=== PATIENT | female | born 1935 | race Caucasian/White ===

== ENCOUNTER 2016-10-22 17:21 | Observation (INO) | payer OTHER ==
[~2016-10-22] VITALS: Ht 162.6 cm; Wt 65.8 kg
[~2016-10-22 17:21] MED LIST: ASPIRIN325 MG PO; Ascorbic Acid,Ester- PO; CARVEDILOL3.125 MG PO; CIPRO500 MG PO; CLONAZEPAM0.5 MG PO; COREG3.125 M1 PO; CYANOCOBALAM1000 MCG PO; Coreg PO; FOLIC ACID1 MG PO; GLUCOPHAGE XR,500 MG PO; LIPITOR80 MG PO; LOMOTIL TABLET1 EACH PO; LOTREL 10/41 CAPSULE PO; LOTREL 5-40 MG1 EACH PO; LOW DOSE ASPIRI81 M2 PO; Lipitor PO; MICARDIS80 MG PO; NASONEX; NASONEX17 GM BOTH NARES; NASONEX17 GM NS; PLAVIX75 MG PO; PRIMIDONE50 MG PO; PROTONIX40 MG PO; PULMICORT FLE180 MCG IH; PULMICORT180 MICROG IH; Plavix PO; SIMVASTATIN40 M1 PO; SINGULAIR10 MG PO; SPIRIVA1 INHALATI IH; TRIAMCINOLONE A15 GM TP; TRILIPIX135 MG PO; TYLENOL REGULA325 MG PO; TYLENOL WITH C1 EACH PO; Tums,OsCal PO; Tylenol Regular Stre PO; VITAMIN D-32000 UNIT PO; Vitamin D PO
[2016-10-22 17:59] LABS: HEMATOCRIT 41.5 % (36.0-46.0); MCH 30.7 PG (29.0-34.0); MCHC 34.2 G/DL (30.0-36.0); MCV 89.8 FL (83-99); MEAN PLAT.VOLUME 9.8 uM^3 (9.5-12.4); PLATELET COUNT 188 K/uL (156-360); RBC DIS.WIDTH-CV 13.4 % (11.8-14.6); RED BLOOD COUNT 4.62 M/uL (3.80-5.20)
[2016-10-22 18:09] LABS: CHLORIDE 101 mEq/L (99-109); POTASSIUM 3.9 mEq/L (3.7-5.4); SODIUM 137 mEq/L (136-147)
[2016-10-22 18:11] LABS: GLUCOSE 192 mg/dL (70-99)
[2016-10-22 18:13] LABS: ANION GAP 11 MEQ/L (2-14)
[2016-10-22 18:15] LABS: GFR ESTIMATE (CALCULATED) > 59 mL/min/
[2016-10-22 18:16] LABS: UREA NITROGEN (BUN) 14 mg/dL (9-23)
[2016-10-22 19:27] LABS: D-DIMER ELISA 2.01 mg/L FEU (< 0.57)
[2016-10-22 19:31] LABS: TROP-I INTERPRETATION NEGATIVE; TROPONIN-I 0.03 ng/mL (0.0-0.30)
[2016-10-22 20:25] LABS: ADD MIUA? YES; BILIRUBIN NEGATIVE; BLOOD TRACE; COLOR YELLOW ((YELLOW)); GLUCOSE (STRIP) NEGATIVE; KETONES NEGATIVE; LEUKOCYTES NEGATIVE; NITRITE NEGATIVE; PROTEIN (STRIP) NEGATIVE; SPECIFIC GRAVITY 1.045 (1.000-1.030); UROBILINOGEN 0.2 MG/DL (0.2-1.0)
[2016-10-22 20:40] LABS: BACTERIA RARE; CASTS NONE SEEN /LPF; CRYSTALS NONE SEEN; EPITHELIAL CELLS RARE; MUCUS NONE SEEN; RED BLOOD CELLS 0-5 /HPF (0-5); UCUL ADDED? NO; WHITE BLOOD CELLS 0-5 /HPF (0-5)
[2016-10-22] MEDS ORDERED: FENOFIBRATE145 M1 PO (22:33)
[2016-10-22] MEDS ORDERED: PROPRANOLOL HCL80 MG PO (22:36)
[2016-10-22] MEDS ORDERED: LOW DOSE ASPIRI81 M1 PO (22:36)
[2016-10-22] MEDS ORDERED: MYSOLINE250 MG PO (22:37)
[2016-10-22] MEDS ORDERED: RANITIDINE HCL150 M1 PO (22:38)
[2016-10-22] MEDS ORDERED: PROAIR HFA8.5 GM IH (22:38)
[2016-10-22] MEDS ORDERED: MOBIC7.5 MG PO (22:40)
[2016-10-22] MEDS ORDERED: VITAMIN D31000 UNI2 PO (22:41)
[2016-10-22] MEDS ORDERED: VITAMIN E400 UNIT PO (22:42)
[2016-10-22] MEDS ORDERED: VITAMIN B122500 MCG PO (22:43)
[2016-10-22] MEDS ORDERED: FOLIC ACID0.8 M1 PO (22:44)
[2016-10-22] MEDS ORDERED: FISH OIL 1,2001 EAC5 PO (22:44)
[2016-10-23 00:49] VITALS: BP 144/65
[2016-10-23 01:59] LABS: TROP-I INTERPRETATION NEGATIVE; TROPONIN-I 0.04 ng/mL (0.0-0.30)
[2016-10-23 04:54] VITALS: BP 136/77
[2016-10-23 05:17] LABS: INFLUENZA A VIRAL ANTIGEN NEGATIVE; INFLUENZA B VIRAL ANTIGEN NEGATIVE
[2016-10-23 06:56] LABS: ALKALINE PHOSPHATASE 54 IU/L (3-129); ANION GAP 9 MEQ/L (2-14); CHLORIDE 103 MEQ/L (99-109); GFR ESTIMATE (CALCULATED) > 59 mL/min/; GLUCOSE 141 mg/dL (70-99); POTASSIUM 3.8 MEQ/L (3.7-5.4); SAMPLE HEMOLYSIS CHECK 0; SAMPLE ICTERIC CHECK 0; SAMPLE LIPEMIA CHECK 0; SODIUM 140 MEQ/L (136-147); TOTAL BILIRUBIN 0.6 MG/DL (0.0-1.0); UREA NITROGEN (BUN) 13 mg/dL (9-23)
[2016-10-23 06:59] LABS: MCH 30.6 PG (29.0-34.0); MCV 92.7 FL (83-99); MEAN PLAT.VOLUME 10.1 uM^3 (9.5-12.4); PLATELET COUNT 135 K/uL (156-360); RBC DIS.WIDTH-CV 13.8 % (11.8-14.6); RBC DIS.WIDTH-SD 46.5 % (39-53); RED BLOOD COUNT 3.99 M/uL (3.80-5.20)
[2016-10-23 07:00] LABS: WHITE BLOOD COUNT 6.9 K/uL (4.1-10.2)
[2016-10-23 07:06] LABS: Estimated Average Glucose 126 mg/dL (70-123)
[2016-10-23 07:35] LABS: POINT-OF-CARE METER ID UU14162513
[2016-10-23 07:37] LABS: TROP-I INTERPRETATION NEGATIVE; TROPONIN-I 0.02 ng/mL (0.0-0.30)
[2016-10-23 08:15] VITALS: BP 164/69
[2016-10-23 12:40] LABS: POINT-OF-CARE METER ID UU14162513
[2016-10-23 12:42] VITALS: BP 124/59
[2016-10-23] MEDS ORDERED: AZITHROMYCIN500 M1 PO (15:47)
[2016-10-23 16:05] VITALS: BP 124/60
== END 2016-10-23 17:22 | disposition home or self-care (01) ==
LOC: EME 17:21 → EDOF 21:21 → 5WEST 21:21
PROVIDERS: Internal Medicine
DX: J44.1 Chronic obstructive pulmonary disease with (acute) exacerbation (principal); R94.31 Abnormal electrocardiogram [ECG] [EKG]; I11.9 Hypertensive heart disease without heart failure; E11.9 Type 2 diabetes mellitus without complications; I25.10 Atherosclerotic heart disease of native coronary artery without angina pectoris; Z98.61 Coronary angioplasty status; I49.3 Ventricular premature depolarization; E78.5 Hyperlipidemia, unspecified; Z79.84 Long term (current) use of oral hypoglycemic drugs; Z79.82 Long term (current) use of aspirin; Z87.891 Personal history of nicotine dependence
CPT/HCPCS: 71020; 71275; 74177; 80048; 80053; 81003; 82948; 83036; 83605; 84484; 85027; 85379; 87040; 87502; 93005; 94640; 94640 76; 94799; 99281; 99285; G0378; G8978 GP CJ; G8979 GP CI; G8980 CJ; G8987 GO CJ; G8988 GO CH; G8989 CJ; J1644; J7030

== ENCOUNTER 2016-12-10 11:08 | Day surgery (SDC) | payer OTHER ==
[~2016-12-10] VITALS: Ht 160 cm; Wt 65.0 kg
[~2016-12-10 11:08] MED LIST changes: +ATORVASTATIN CA20 MG PO; +AZITHROMYCIN500 M1 PO; +FENOFIBRATE145 M1 PO; +FISH OIL 1,2001 EAC5 PO; +FOLIC ACID0.8 M1 PO; +LOW DOSE ASPIRI81 M1 PO; +MOBIC7.5 MG PO; +MYSOLINE250 MG PO; +PROAIR HFA8.5 GM IH; +PROPRANOLOL HCL80 MG PO; +RANITIDINE HCL150 M1 PO; +VITAMIN B122500 MCG PO; +VITAMIN D31000 UNI2 PO; +VITAMIN E400 UNIT PO
[2016-12-10 12:10] LABS: POINT-OF-CARE METER ID UU13113696; POINT-OF-CARE USER ID HMLCJM07
== END 2016-12-10 18:00 | disposition home or self-care (01) ==
LOC: CATH 11:08
PROVIDERS: Internal Medicine Cardiovascular Disease
DX: R07.9 Chest pain, unspecified (principal); R94.39 Abnormal result of other cardiovascular function study; Z95.5 Presence of coronary angioplasty implant and graft; I10 Essential (primary) hypertension; E11.9 Type 2 diabetes mellitus without complications; E78.5 Hyperlipidemia, unspecified; Z79.82 Long term (current) use of aspirin
CPT/HCPCS: 82948; C1769; C1887; J1644; J2250; J3010

== ENCOUNTER 2017-03-04 18:07 | Emergency (ER) | payer OTHER ==
[~2017-03-04] VITALS: Ht 160 cm; Wt 65.0 kg
[2017-03-04 20:22] VITALS: BP 208/73
== END 2017-03-04 20:27 | disposition home or self-care (01) ==
LOC: EME 18:07
DX: S00.83XA Contusion of other part of head, initial encounter (principal); M25.561 Pain in right knee; M79.642 Pain in left hand; W19.XXXA Unspecified fall, initial encounter; Y92.538 Other ambulatory health services establishments as the place of occurrence of the external cause; Y93.01 Activity, walking, marching and hiking; Z87.891 Personal history of nicotine dependence; Z95.5 Presence of coronary angioplasty implant and graft; E11.9 Type 2 diabetes mellitus without complications; Z79.84 Long term (current) use of oral hypoglycemic drugs; Z79.82 Long term (current) use of aspirin; E78.5 Hyperlipidemia, unspecified; I10 Essential (primary) hypertension
CPT/HCPCS: 70450; 70486; 73110; 73130; 73564; 93005; 99281; 99284

== ENCOUNTER 2017-12-30 12:46 | Emergency (ER) | payer OTHER, BC ==
[~2017-12-30] VITALS: Ht 157.5 cm; Wt 97.7 kg
[~2017-12-30 12:46] MED LIST changes: +PREDNISONE50 MG PO; +ZITHROMAX Z-PA250 MG PO
[2017-12-30 13:21] LABS: BASOPHIL (%) 0.2 % (0-1); EOSINOPHIL (%) 0.4 % (0-5); HEMATOCRIT 39.2 % (36.0-46.0); HEMOGLOBIN 13.2 G/DL (11.9-15.5); IMMATURE GRANULOCYTE (%) 0.7 % (0.0-0.7); LYMPHOCYTE (%) 10.5 % (15-42); LYMPHOCYTE COUNT 0.5 K/uL (1.0-2.8); MCH 31.5 PG (29.0-34.0); MCHC 33.7 G/DL (30.0-36.0); MCV 93.6 FL (83-99); MONOCYTE (%) 7.5 % (3-12); MONOCYTE COUNT 0.3 K/uL (0-0.8); NEUTROPHIL (%) 80.7 % (45-76); NEUTROPHIL COUNT 3.7 K/uL (1.8-6.4); PLATELET COUNT 154 K/uL (156-360); RBC DIS.WIDTH-CV 12.5 % (11.8-14.6); RBC DIS.WIDTH-SD 42.6 % (39-53); RED BLOOD COUNT 4.19 M/uL (3.80-5.20); WHITE BLOOD COUNT 4.6 K/uL (4.1-10.2)
[2017-12-30 13:33] LABS: CHLORIDE 102 mEq/L (99-109); POTASSIUM 4.3 mEq/L (3.7-5.4); SODIUM 141 mEq/L (136-147)
[2017-12-30 13:34] LABS: MAGNESIUM 1.8 mg/dL (1.3-2.7)
[2017-12-30 13:35] LABS: GLUCOSE 129 mg/dL (70-99); TOTAL PROTEIN 7.1 g/dL (6.4-8.3)
[2017-12-30 13:37] LABS: TOTAL BILIRUBIN 0.4 mg/dL (0.0-1.0)
[2017-12-30 13:39] LABS: ALKALINE PHOSPHATASE 72 IU/L (3-129); CREATININE 1.4 mg/dL (0.6-1.3); GFR ESTIMATE (CALCULATED) 38 mL/min/
[2017-12-30 13:40] LABS: UREA NITROGEN (BUN) 21 mg/dL (9-23)
[2017-12-30 13:41] LABS: AST (GOT) 25 IU/L (2-34)
[2017-12-30 13:42] LABS: ALT (GPT) 16 IU/L (3-49)
[2017-12-30 13:42] LABS: TROP-I INTERPRETATION NEGATIVE; TROPONIN-I 0.02 ng/mL (0.0-0.30)
[2017-12-30 14:47] LABS: APPEARANCE CLEAR ((CLEAR)); BILIRUBIN MODERATE; BLOOD NEGATIVE; COLOR AMBER ((YELLOW)); GLUCOSE (STRIP) NEGATIVE; KETONES 5; LEUKOCYTES TRACE; NITRITE NEGATIVE; PROTEIN (STRIP) 30; SPECIFIC GRAVITY 1.023 (1.000-1.030)
[2017-12-30 15:05] LABS: BACTERIA NONE SEEN /HPF; EPITHELIAL CELLS 1+ /HPF; HYALINE CASTS 15-20 /LPF; MUCUS TRACE /LPF; RED BLOOD CELLS 0-5 /HPF (0-5); UCUL ADDED? YES
[2017-12-30 15:24] LABS: ICTOTEST NEGATIVE
[2017-12-30 17:01] LABS: TROP-I INTERPRETATION NEGATIVE; TROPONIN-I < 0.01 ng/mL (0.0-0.30)
[2017-12-30] MEDS ORDERED: KEFLEX500 MG PO (18:31)
[2017-12-30 18:47] VITALS: BP 152/60
== END 2017-12-30 18:49 | disposition home or self-care (01) ==
LOC: EME 12:46
PROVIDERS: Emergency Medicine
DX: N39.0 Urinary tract infection, site not specified (principal); R91.8 Other nonspecific abnormal finding of lung field; I44.0 Atrioventricular block, first degree; R94.31 Abnormal electrocardiogram [ECG] [EKG]; E11.9 Type 2 diabetes mellitus without complications; E78.5 Hyperlipidemia, unspecified; M81.0 Age-related osteoporosis without current pathological fracture; Z87.891 Personal history of nicotine dependence; Z95.5 Presence of coronary angioplasty implant and graft; Z79.82 Long term (current) use of aspirin
CPT/HCPCS: 71045; 80053; 81003; 83735; 84484; 85025; 87086; 93005; 99281; 99285; J0696; J7040